=== PATIENT | male | born 1955 | race Caucasian/White ===

== ENCOUNTER 2017-01-12 12:41 | Emergency (ER) | payer BC ==
[~2017-01-12] VITALS: Ht 175.3 cm; Wt 66.0 kg
[~2017-01-12 12:41] MED LIST: GABA300C3 PO
[2017-01-12 13:01] VITALS: BP 141/86; PULSE 67; RESP 16; TEMP 97.9; O2SAT 97
[2017-01-12] MEDS ORDERED: SODIUM CHLOR 0.9% 1000 ML INJ 1,000 ML IV SCH (13:28)
[2017-01-12] MEDS ORDERED: SODIUM CHLORIDE 0.9% FLUSH 10 ML FLUSH IV FLUSH PRN (13:30)
[2017-01-12] MEDS ORDERED: ONDANSETRON HCL 4 MG/2 ML VIAL IVP ONE (13:30)
[2017-01-12] MEDS ORDERED: MORPHINE SULFATE 8 MG/ML INJ IV PUSH ONE (13:30)
[2017-01-12 13:33] VITALS: O2SAT 98
--- NOTE | 2017-01-12 13:41 | PD ---
HPI Chief Complaint: Abdominal Pain Time Seen by Provider: 13:19 Travel History International Travel<30 days: No Contact w/Intl Traveler<30days: No Traveled to known affect area: No History of Present Illness HPI Patient is a 61-year-old male with history of hepatitis C, currently on a secondary treatment for hepatitis C, presents to emergency room with complaints of abdominal pain. Patient reports that he has been having abdominal pain for the past few years, reports that he woke up this morning and felt nauseous, reports that he felt as if his abdomen was bloated. he reports that he has had a past history of an exploratory laparotomy in the past due to an accident that "I tried to forget it and can't tell you what happened because it was so traumatic". Patient reports that he has noticed increased abdominal bloating as well as increased swelling to the right side of his abdomen. Reports nausea with no vomiting. Denies fevers or chills, reports that he has also been coughing. Patient reports that he is currently being followed by bottle caser for his hepatitis C treatment which he is in his second year of treatment. FORMERLY [facility] Past Medical History Medical History: Denies Significant Hx Hepatitis: Yes (C) Tetanus Vaccination: > 5 Years Influenza Vaccination: No Past Surgical History Surgical History: No Previous Surgery Social History Alcohol Use: No Tobacco Use: Yes (CIGARS) Substance Use: No Allergies-Medications (Allergen,Severity, Reaction): Coded Allergies: No Known Allergies (Unverified , 01/12/17) Reported Meds & Prescriptions Reported Meds & Active Scripts Active Azithromycin 500 Mg Tab 500 Mg PO DAILY Miralax Powder (Polyethylene Glycol 3350 Powder) 17 Gm Powd 17 Gm PO DAILY Mix and dissolve one measuring cap-ful (17 grams) in water or juice. Review of Systems General / Constitutional: No: Fever Eyes: No: Visual changes HENT: No: Headaches Cardiovascular: No: Chest Pain or Discomfort Respiratory: Positive: Cough, No: Shortness of Breath Gastrointestinal: Positive: Nausea, Abdominal Pain Genitourinary: No: Dysuria Musculoskeletal: No: Pain Skin: No Rash Neurologic: No: Weakness Psychiatric: No: Depression Endocrine: No: Polydipsia Hematologic/Lymphatic: No: Easy Bruising Physical Exam Narrative GENERAL: No acute distress, nontoxic SKIN: Focused skin assessment warm/dry. HEAD: Atraumatic. Normocephalic. EYES: Pupils equal and round. No scleral icterus. No injection or drainage. ENT: No nasal bleeding or discharge. Mucous membranes pink and moist. NECK: Trachea midline. No JVD. CARDIOVASCULAR: Regular rate and rhythm. No murmur appreciated. RESPIRATORY: No accessory muscle use. Clear to auscultation. Breath sounds equal bilaterally. GASTROINTESTINAL: Abdomen soft, non-tender, nondistended. Hepatic and splenic margins not palpable. MUSCULOSKELETAL: No obvious deformities. No clubbing. No cyanosis. No edema. NEUROLOGICAL: Awake and alert. No obvious cranial nerve deficits. Motor grossly within normal limits. Normal speech. PSYCHIATRIC: Patient patient on exam Data Data Last Documented VS Vital Signs Date Time Temp Pulse Resp B/P Pulse Ox O2 Delivery O2 Flow Rate FiO2 01/12/17 15:43 73 16 119/67 99 Room Air 01/12/17 13:01 97.9 Orders Complete Blood Count With Diff (01/12/17 13:28) Comprehensive Metabolic Panel (01/12/17 13:28) Lipase (01/12/17 13:28) Prothrombin Time / Inr (Pt) (01/12/17 13:28) Act Partial Throm Time (Ptt) (01/12/17 13:28) Urinalysis - C+S If Indicated (01/12/17 13:28) Ct Abd/Pel W Iv Contrast(Rout) (01/12/17 13:28) Iv Access Insert/Monitor (01/12/17 13:28) Ecg Monitoring (01/12/17 13:28) Oximetry (01/12/17 13:28) NPO (01/12/17 13:28) Ondansetron Inj (Zofran Inj) (01/12/17 13:30) Sodium Chlor 0.9% 1000 Ml Inj (Ns 1000 M (01/12/17 13:28) Sodium Chloride 0.9% Flush (Ns Flush) (01/12/17 13:30) Chest, Single Ap (01/12/17 13:28) Morphine Inj (Morphine Inj) (01/12/17 13:30) Iohexol 350 Inj (Omnipaque 350 Inj) (01/12/17 14:38) Azithromycin (Zithromax) (01/12/17 15:45) Labs Laboratory Tests Test 01/12/17 01/12/17 13:40 13:45 White Blood Count 15.5 TH/MM3 Red Blood Count 5.37 MIL/MM3 Hemoglobin 15.9 GM/DL Hematocrit 48.8 % Mean Corpuscular Volume 90.9 FL Mean Corpuscular Hemoglobin 29.7 PG Mean Corpuscular Hemoglobin 32.7 % Concent Red Cell Distribution Width 11.8 % Platelet Count 214 TH/MM3 Mean Platelet Volume 8.9 FL Neutrophils (%) (Auto) 77.3 % Lymphocytes (%) (Auto) 15.6 % Monocytes (%) (Auto) 5.2 % Eosinophils (%) (Auto) 0.4 % Basophils (%) (Auto) 1.5 % Neutrophils # (Auto) 12.0 TH/MM3 Lymphocytes # (Auto) 2.4 TH/MM3 Monocytes # (Auto) 0.8 TH/MM3 Eosinophils # (Auto) 0.1 TH/MM3 Basophils # (Auto) 0.2 TH/MM3 CBC Comment DIFF FINAL Differential Comment Prothrombin Time 11.9 SEC Prothromb Time International 1.1 RATIO Ratio Activated Partial 27.1 SEC Thromboplast Time Sodium Level 144 MEQ/L Potassium Level 4.2 MEQ/L Chloride Level 108 MEQ/L Carbon Dioxide Level 27.6 MEQ/L Anion Gap 8 MEQ/L Blood Urea Nitrogen 18 MG/DL Creatinine 0.79 MG/DL Estimat Glomerular Filtration 100 ML/MIN Rate Random Glucose 101 MG/DL Calcium Level 8.8 MG/DL Total Bilirubin 0.7 MG/DL Aspartate Amino Transf 26 U/L (AST/SGOT) Alanine Aminotransferase 20 U/L (ALT/SGPT) Alkaline Phosphatase 123 U/L Total Protein 7.6 GM/DL Albumin 3.8 GM/DL Lipase 81 U/L Urine Collection Type CLEAN CATCH Urine Color YELLOW Urine Turbidity CLEAR Urine pH 6.0 Urine Specific [place] 1.018 Urine Protein NEG mg/dL Urine Glucose (UA) NEG mg/dL Urine Ketones NEG mg/dL Urine Occult Blood NEG Urine Nitrite NEG Urine Bilirubin NEG Urine Leukocyte Esterase NEG Urine WBC 0-2 /hpf Urine Squamous Epithelial 0-5 /hpf Cells Microscopic Urinalysis Comment CULT NOT INDICATED MDM Medical Decision Making Medical Screen Exam Complete: Yes Emergency Medical Condition: Yes Interpretation(s) Vital Signs Date Time Temp Pulse Resp B/P Pulse Ox O2 Delivery O2 Flow Rate FiO2 01/12/17 13:01 97.9 67 16 141/86 97 Differential Diagnosis Differential for his cough includes pneumonia, viral infection or COPD exacerbation; Differential for abdominal pain could be secondary to appendicitis, colitis, gastroenteritis, electrolyte abnormality, hepatitis, liver failure Narrative Course Patient is a 61-year-old male who presents to emergency room for multiple complaints. Patient reports that he has had a neck and cough which is nonproductive, he does smoke cigars, no fevers or chills. X-ray of chest ordered to evaluate for possible infection. Patient also complaining of abdominal pain for the past few years, he is currently being treated for hepatitis C. Plan to obtain labs including LFTs, will obtain CT of the abdomen pelvis with IV contrast. Vital Signs Date Time Temp Pulse Resp B/P Pulse Ox O2 Delivery O2 Flow Rate FiO2 01/12/17 13:33 98 Room Air 01/12/17 13:01 97.9 67 16 141/86 97 Laboratory Tests Test 01/12/17 01/12/17 13:40 13:45 White Blood Count 15.5 TH/MM3 (4.0-11.0) Red Blood Count 5.37 MIL/MM3 (4.50-5.90) Hemoglobin 15.9 GM/DL (13.0-17.0) Hematocrit 48.8 % (39.0-51.0) Mean Corpuscular Volume 90.9 FL (80.0-100.0) Mean Corpuscular Hemoglobin 29.7 PG (27.0-34.0) Mean Corpuscular Hemoglobin 32.7 % Concent (32.0-36.0) Red Cell Distribution Width 11.8 % (11.6-17.2) Platelet Count 214 TH/MM3 (150-450) Mean Platelet Volume 8.9 FL (7.0-11.0) Neutrophils (%) (Auto) 77.3 % (16.0-70.0) Lymphocytes (%) (Auto) 15.6 % (9.0-44.0) Monocytes (%) (Auto) 5.2 % (0.0-8.0) Eosinophils (%) (Auto) 0.4 % (0.0-4.0) Basophils (%) (Auto) 1.5 % (0.0-2.0) Neutrophils # (Auto) 12.0 TH/MM3 (1.8-7.7) Lymphocytes # (Auto) 2.4 TH/MM3 (1.0-4.8) Monocytes # (Auto) 0.8 TH/MM3 (0-0.9) Eosinophils # (Auto) 0.1 TH/MM3 (0-0.4) Basophils # (Auto) 0.2 TH/MM3 (0-0.2) CBC Comment DIFF FINAL Differential Comment Prothrombin Time 11.9 SEC (9.8-11.6) Prothromb Time International 1.1 RATIO Ratio Activated Partial 27.1 SEC Thromboplast Time (24.3-30.1) Sodium Level 144 MEQ/L (136-145) Potassium Level 4.2 MEQ/L (3.5-5.1) Chloride Level 108 MEQ/L (98-107) Carbon Dioxide Level 27.6 MEQ/L (21.0-32.0) Anion Gap 8 MEQ/L (5-15) Blood Urea Nitrogen 18 MG/DL (7-18) Creatinine 0.79 MG/DL (0.60-1.30) Estimat Glomerular Filtration 100 ML/MIN Rate (>89) Random Glucose 101 MG/DL (74-106) Calcium Level 8.8 MG/DL (8.5-10.1) Total Bilirubin 0.7 MG/DL (0.2-1.0) Aspartate Amino Transf 26 U/L (15-37) (AST/SGOT) Alanine Aminotransferase 20 U/L (12-78) (ALT/SGPT) Alkaline Phosphatase 123 U/L (45-117) Total Protein 7.6 GM/DL (6.4-8.2) Albumin 3.8 GM/DL (3.4-5.0) Lipase 81 U/L (73-393) Urine Collection Type CLEAN CATCH Urine Color YELLOW (YELLW/STRAW) Urine Turbidity CLEAR (CLEAR) Urine pH 6.0 (5.0-8.5) Urine Specific [place] 1.018 (1.002-1.035) Urine Protein NEG mg/dL (NEG-TRACE) Urine Glucose (UA) NEG mg/dL (NEG) Urine Ketones NEG mg/dL (NEG) Urine Occult Blood NEG (NEG) Urine Nitrite NEG (NEG) Urine Bilirubin NEG (NEG) Urine Leukocyte Esterase NEG (NEG) Urine WBC 0-2 /hpf (0-5) Urine Squamous Epithelial 0-5 /hpf (0-5) Cells Microscopic Urinalysis Comment CULT NOT INDICATED Last Impressions Chest X-Ray 01/12/17 1328 Signed Impressions: Service Date/Time: Thursday, January 12, 2017 14:19 - CONCLUSION: 1. No acute findings. Tristen Albarran MD Abdomen/Pelvis CT 01/12/17 1328 Signed Impressions: Service Date/Time: Thursday, January 12, 2017 14:21 - CONCLUSION: 1. No acute findings on abdomen and pelvic CT. Mild constipation. Tristen Albarran MD Labs and studies reviewed, patient with most likely acute bronchitis with his cough, he does have a wbc count of 15.5, xray of chest with no acute findings. Will treat with azithromycin. CT of abdomen and pelvis with mild constipation. Will start patient on miralax. Patient has a follow-up appointment with his bottle caser tomorrow, he will bring a copy of his lab work and studies with him to his appointment. Patient will return to ER as needed Diagnosis Primary Impression: Abdominal pain Qualified Code: R10.31 - Right lower quadrant abdominal pain Additional Impressions: Constipation Qualified Code: K59.00 - Constipation, unspecified constipation type Bronchitis Patient Instructions: Narcotic given in the ED, General Instructions Additional Instructions: Please provide patient with a copy of his lab work at discharge Please return to the emergency room as needed Please follow-up with your bottle caser tomorrow as scheduled, please bring your radiology report as well as your lab work with you to your appointment Please follow up with your primary care doctor Return to ER if symptoms worsen or persist. Med/Other Pt SpecificInfo: Prescription(s) given Scripts Azithromycin 500 Mg Lim142 Mg PO DAILY #5 TAB Ref 0 Prov:Rashida Santos DO 01/12/17 Polyethylene Glycol 3350 Powder (Miralax Powder)17 Gm Powd17 Gm PO DAILY #1 CAN Ref 0 Mix and dissolve one measuring cap-ful (17 grams) in water or juice. Prov:Rashida Santos DO 01/12/17 Disposition: 01 DISCHARGE HOME Condition: Stable Rashida Santos DO Jan 12, 2017 13:41
[2017-01-12 13:47] LABS: BASOPHIL # 0.2 TH/MM3 (0-0.2); BASOPHIL % 1.5 % (0.0-2.0); EOSINOPHIL # 0.1 TH/MM3 (0-0.4); EOSINOPHIL % 0.4 % (0.0-4.0); HEMATOCRIT 48.8 % (39.0-51.0); LYMPH % 15.6 % (9.0-44.0); LYMPHOCYTE # 2.4 TH/MM3 (1.0-4.8); MEAN CELL VOLUME 90.9 FL (80.0-100.0); MEAN CORPUSCULAR HEMOGLOBIN 29.7 PG (27.0-34.0); MEAN CORPUSCULAR HGB CONC 32.7 % (32.0-36.0); MONO % 5.2 % (0.0-8.0); NEUT % 77.3 % (16.0-70.0); PLATELET COUNT 214 TH/MM3 (150-450); RED BLOOD COUNT 5.37 MIL/MM3 (4.50-5.90); RED CELL DISTRIBUTION WIDTH 11.8 % (11.6-17.2); WHITE BLOOD COUNT 15.5 TH/MM3 (4.0-11.0)
[2017-01-12 13:48] LABS: HEMO FLAGS DIFF FINAL
[2017-01-12 13:55] LABS: CHLORIDE 108 MEQ/L (98-107); POTASSIUM 4.2 MEQ/L (3.5-5.1); SODIUM (NA) 144 MEQ/L (136-145)
[2017-01-12 13:58] LABS: BLOOD, URINE NEG (NEG); GLUCOSE,URINE NEG (NEG); KETONE, URINE NEG (NEG); NITRITE,URINE NEG (NEG)
[2017-01-12 13:59] LABS: ANION GAP 8 MEQ/L (5-15); BICARBONATE 27.6 MEQ/L (21.0-32.0); BLOOD UREA NITROGEN 18 MG/DL (7-18)
[2017-01-12 14:02] LABS: ALT (GPT) 20 U/L (12-78); AST (GOT) 26 U/L (15-37); GLOMERULAR FILTRATION RATE 100 ML/MIN (>89)
[2017-01-12 14:03] LABS: TOTAL BILIRUBIN ADULT 0.7 MG/DL (0.2-1.0)
[2017-01-12 14:05] LABS: ALKALINE PHOSPHATASE 123 U/L (45-117)
[2017-01-12 14:19] LABS: APTT (PATIENT) 27.1 SEC (24.3-30.1); INTERNATIONAL NORMALIZED RATIO 1.1 RATIO; PROTHROMBIN TIME - PATIENT 11.9 SEC (9.8-11.6)
[2017-01-12] MEDS ORDERED: IOHEXOL 350 MG/ML 10 ML VIAL (for RAD DIAG) IV ONE (14:38)
--- NOTE | 2017-01-12 14:38 | RADRPT ---
EXAM DATE/TIME: 01/12/2017 14:19 [facility] COMPARISON: No previous studies available for comparison. INDICATIONS : Cough, short of breath. MEDICAL HISTORY : None. SURGICAL HISTORY : None. ENCOUNTER: Initial ACUITY: 1 week PAIN SCORE: 0/10 LOCATION: Bilateral chest FINDINGS: No focal consolidation or effusion. Mildly tortuous aorta. Mild apical scarring. Heart size within no rmal limits. CONCLUSION: 1. No acute findings. Tristen Albarran MD on January 12, 2017 at 14:35 Board Certified Radiologist. This report was verified electronically.
[2017-01-12 14:41] LABS: COMMENT (UR) CULT NOT INDICATED; CULTURE IF INDICATED CULT NOT INDICATED; METHOD OF COLLECTION CLEAN CATCH; SQUAMOUS EPITHELIAL CELL URINE 0-5 /hpf (0-5); URINE COLOR YELLOW (YELLW/STRAW); WBC, URINE 0-2 /hpf (0-5)
--- NOTE | 2017-01-12 14:54 | RADRPT ---
EXAM DATE/TIME: 01/12/2017 14:21 [facility] COMPARISON: No previous studies available for comparison. INDICATIONS : Abdomen pain with nausea and bloating starting today IV CONTRAST: 70 cc Omnipaque 350 (iohexol) IV ORAL CONTRAST: No oral contrast ingested. RADIATION DOSE: 4.68 CTDIvol (mGy) MEDICAL HISTORY : Hepatitis C. SURGICAL HISTORY : None. ENCOUNTER: Initial ACUITY: 1 day PAIN SCALE: 10/10 LOCATION: Abdomen TECHNIQUE: Volumetric scanning of the abdomen and pelvis was performed. Using automated exposure control and ad justment of the mA and/or kV according to patient size, radiation dose was kept as low as reasonably achievable to obtain optimal diagnostic quality images. DICOM format image data is available electro nically for review and comparison. FINDINGS: Lung bases demonstrate dependent atelectasis. No acute findings in the liver, spleen, adrenals, kidneys or pancreas. No calcified gallstones or evelio iary ductal dilatation. Mild constipation. No bowel obstruction, free air free fluid. No adenopathy. No acute bony abnormalities. CONCLUSION: 1. No acute findings on abdomen and pelvic CT. Mild constipation. Tristen Albarran MD on January 12, 2017 at 14:46 Board Certified Radiologist. This report was verified electronically.
[2017-01-12] MEDS ORDERED: MIRA3350 PO (15:37)
[2017-01-12 15:43] VITALS: BP 119/67; PULSE 73; RESP 16; O2SAT 99
[2017-01-12] MEDS ORDERED: AZIT500T2 PO (15:43)
[2017-01-12] MEDS ORDERED: AZITHROMYCIN 250 MG TAB PO ONE (15:45)
== END 2017-01-12 16:10 | disposition home or self-care (01) ==
LOC: PHED 12:41
DX: R10.31 Right lower quadrant pain (principal); K59.00 Constipation, unspecified; J40 Bronchitis, not specified as acute or chronic; B19.20 Unspecified viral hepatitis C without hepatic coma
CPT/HCPCS: 71010; 74177; 80053; 81001; 83690; 85025; 85610; 85730; 96361; 96374; 99285; J2405; J7030; Q9967